=== PATIENT | female | born 1960 | race Caucasian/White ===

== ENCOUNTER 2016-09-03 13:51 | Emergency (ER) | payer BC ==
[~2016-09-03] VITALS: Ht 175.3 cm; Wt 89.3 kg
[2016-09-03 14:11] LABS: BASOPHILS % (AUTO) 0 % (0-2); EOSINOPHILS # (AUTO) 0.1 10^3uL; EOSINOPHILS % (AUTO) 1 % (0-4); LYMPHOCYTES # (AUTO) 1.9 X10^3; MEAN CORPUSCULAR HEMOGLOBIN 29.6 PG (26.0-34.0); MEAN CORPUSCULAR HGB CONC 33.9 g/dL (31.0-37.0); MEAN CORPUSCULAR VOLUME 87 FL (80-100); MEAN PLATELET VOLUME 9.3 FL (6.0-9.5); MONOCYTES # (AUTO) 0.5 X10^3; MONOCYTES % (AUTO) 7 % (3-11); NEUTROPHILS # (AUTO) 5.4 X10^3; NEUTROPHILS % (AUTO) 68 % (51-67); PLATELET COUNT 306 10^3uL (150-450)
[2016-09-03] MEDS ORDERED: SODIUM CHLORIDE FLUSH 10 ML SYR IV PRN (14:20)
--- NOTE | 2016-09-03 14:21 | Diagnostic Imaging Report ---
PROCEDURE: CT head without contrast. TECHNIQUE: Multiple contiguous axial images were obtained through the brain without the use of intravenous contrast. INDICATION: Disorientation. Patient was painting outdoors and became confused. FINDINGS: Noncontrasted study shows normal-appearing ventricles. Cortical gyral pattern is normal. There is no evidence of intracranial hemorrhage. No extra-axial fluid collection. No mass effect. The pituitary is not enlarged. Orbital contents appear normal. The mastoid air cells and paranasal sinuses are clear. There is no evidence of calvarial fracture. IMPRESSION: Negative CT head without contrast. Dictated by: Dictated on workstation # [id number]
[2016-09-03 14:24] LABS: ALBUMIN 4.6 g/dL (3.4-5.0); ALKALINE PHOSPHATASE 91 U/L (38-126); ANION GAP 15.4 MEQ/L (3-15); BUN/CREATININE RATIO 19 (10-20); CALCULATED IONIZED CALCIUM 3.9 mg/dL (3.8-4.6); CREATINE KINASE 64 U/L (30-135); TOTAL PROTEIN 8.3 g/dL (6.4-8.5)
[2016-09-03] MEDS: SODIUM CHLORIDE FLUSH 3 ML SYR IV ONE (14:29)
[2016-09-03] MEDS ORDERED: LEVO-86 PO (14:32)
[2016-09-03 14:40] LABS: CLARITY,URINE Clear; COLOR,URINE Yellow; GLUCOSE, URINE (UA) Negative (Negative); LEUKOCYTE ESTERASE ,URINE Negative (Negative); UROBILINOGEN,URINE 0.2 mg/dL (0.2-1.0)
[2016-09-03 14:45] LABS: BILIRUBIN,URINE 1+ (Negative)
[2016-09-03 14:47] LABS: CALCIUM OXALATE CRYSTALS,UR Rare /HPF; RBC,URINE 0-2 /HPF; URINE CENTRIFUGED VOLUME <10mL Unspun
[2016-09-03 14:51] LABS: AMPHETAMINE SCREEN, URINE Negative (Negative); CANNABINOID SCREEN, URINE Negative (Negative); METHAMPHETAMINE SCREEN URINE S NEGATIVE (NEGATIVE); OPIATE SCREEN URINE Negative (Negative); PROPOXYPHENE STAT NEGATIVE (NEGATIVE)
[2016-09-03 15:32] VITALS: BP 143/78
== END 2016-09-03 15:57 | disposition home or self-care (01) ==
LOC: EDUNIT# 13:51 → ED 13:55
DX: E86.0 Dehydration (principal); G45.4 Transient global amnesia
CPT/HCPCS: 36415; 70450; 80053; 80307; 81003; 81015; 82550; 82553; 82803; 83605; 83880; 84439; 84443; 84484; 85025; 85379; 85610; 86140; 93005; 99285; J7030; 93010; 96360